=== PATIENT | male | born 1990 | race Asian ===

== ENCOUNTER → 2020-08-10 | Outpatient (CLI) | payer OTHER | LOC: MC.RAD 10:00 | DX: D24.2 Benign neoplasm of left breast (principal) ==

== ENCOUNTER → 2021-02-23 | Outpatient (CLI) | payer OTHER | LOC: MC.RAD 02-22 13:00 → EDSEX 10:00 → MC.RAD 10:00 | DX: N63.20 Unspecified lump in the left breast, unspecified quadrant (principal); N63.10 Unspecified lump in the right breast, unspecified quadrant ==